=== PATIENT | male | born 2000 | race Caucasian/White ===

== ENCOUNTER 2022-05-26 10:52 | Emergency (ER) | payer OTHER ==
[~2022-05-26 10:52] MED LIST: PENICILLIN V P250 M1 PO; ULTRAM50 MG PO; ZOFRAN4 MG PO
[2022-05-26 12:28] LABS: BILIRUBIN NEGATIVE (NEGATIVE); BLOOD 3+ Ery/uL (NEGATIVE); CLARITY CLEAR (CLEAR); COLOR YELLOW (YELLOW); GLUCOSE (U) NORMAL (NORMAL); LEUKOCYTES NEGATIVE Leu/uL (NEGATIVE); NITRITE NEGATIVE (NEGATIVE); PROTEIN NEGATIVE (NEGATIVE); UROBILINOGEN 0.2 mg/dL (0.2-1.0)
[2022-05-26 12:47] LABS: BACTERIA TRACE; SQUAMOUS EPITHELIAL CELLS RARE; URINARY RBC 20-50; URINARY WBC RARE
[2022-05-26 13:09] LABS: BASOPHIL 0.3 % (0-2); EOSINOPHIL 0.1 % (0-5); HCT 42.8 % (42.0-52.0); HGB 14.6 g/dl (13.2-18.0); LYMPHOCYTE 7.9 % (15-48); MCH 29.6 pg (25.0-31.0); MCHC 34.1 g/dL (32.0-36.0); MCV 86.6 fL (78.0-100.0); MONOCYTE 4.6 % (0-12); MPV 11.1 fL (6.0-9.5); NEUTROPHIL 86.8 % (41-80); NRBC 0; PLT 227 K/uL (150-400); RBC 4.94 M/uL (4.70-6.00); RDW 12.9 % (11.5-14.0); WBC 14.5 K/uL (4.0-10.5)
[2022-05-26 13:21] LABS: BUN/CREAT RATIO (CALC) 16.3 RATIO; CREATININE 1.23 mg/dL (0.67-1.17); POTASSIUM 3.6 mmol/L (3.5-5.1)
[2022-05-26] MEDS ORDERED: NORCO 5-325 TA1 EACH PO (14:49)
[2022-05-26] MEDS ORDERED: FLOMAX0.4 MG PO (14:49)
== END 2022-05-26 15:13 | disposition home or self-care (01) ==
LOC: FER 10:52
PROVIDERS: Emergency Medicine; Nurse Practitioner Family
DX: N13.2 Hydronephrosis with renal and ureteral calculous obstruction (principal); Z28.310 Unvaccinated for COVID-19
CPT/HCPCS: 36415; 80048; 81001; 85025; J1885; J2405; J7030